=== PATIENT | female | born 1980 | race Caucasian/White ===

== ENCOUNTER 2018-09-19 21:29 | Emergency (ER) | payer MEDICAID ==
[~2018-09-19] VITALS: Ht 175.3 cm; Wt 90.8 kg
[~2018-09-19 21:29] MED LIST: CIPRO500 MG OR; MOTRIN400 MG OR; NO HOME MEDS; ROBITUSS11 OR; TRAMADOL HCL50 MG OR
[2018-09-19] MEDS ORDERED: TRAMADOL HCL50 MG PO (23:12)
[2018-09-19] MEDS ORDERED: VOLTAREN - GENE75 MG PO (23:12)
[2018-09-19 23:27] VITALS: BP 151/95
== END 2018-09-19 23:28 | disposition home or self-care (01) ==
LOC: ED 21:29
DX: S43.402A Unspecified sprain of left shoulder joint, initial encounter (principal); S46.812A Strain of other muscles, fascia and tendons at shoulder and upper arm level, left arm, initial encounter; W16.92XA Jumping or diving into unspecified water causing other injury, initial encounter; Y93.17 Activity, water skiing and wake boarding; Y92.828 Other wilderness area as the place of occurrence of the external cause